=== PATIENT | female | born 1970 | race Caucasian/White ===

== ENCOUNTER 2018-03-11 10:25 | Day surgery (SDC) | payer BC ==
[~2018-03-11 10:25] MED LIST: Acetaminophen/HYDROcodone 325-5 MG Tab PO PRN; Bupivacaine 0.25%/EPINEPHrine 1:200,000 10 ML SDV INJECT ONE; Bupivacaine 25%/EPINEPHrine/PF 30 ML ONE; Clindamycin Phosphate in D5W 600 MG in Premix Bag 1 BAG IV ONE; Glycopyrrolate 0.2 MG/ML SDV ONE; Lactated Ringers 1,000 ML IV SCH; Lidocaine 2% 5 ML SDV ONE; Midazolam 1 MG/ML 2 ML SDV ONE; Neostigmine Methylsulfate 1 MG/ML 5 ML Syringe ONE; Ondansetron 4 MG/2 ML SDV ONE; Propofol 200 MG/20 ML SDV ONE; Rocuronium 10 MG/ML 10 ML Syringe ONE; fentaNYL 100 MCG/2 ML SDV ONE
[2018-03-11] MEDS ORDERED: Bupivacaine 25%/EPINEPHrine/PF 30 ML ONE (10:51)
--- NOTE | 2018-03-11 11:02 | PCM.PREANE ---
Preanesthetic Assessment - Anesthesia/Transfusion/Family Hx Anesthesia History: Prior Anesthesia Without Reaction Family History of Anesthesia Reaction: No Transfusion History: No Prior Transfusion(s) - Review of Systems General: No Symptoms Pulmonary: No Symptoms Cardiovascular: No Symptoms Gastrointestinal: No Symptoms Neurological: No Symptoms Other: Reports: None - Physical Assessment NPO Status Date: 03/10/18 Height: 1.47 m Weight: 53.524 kg ASA Class: 2 Mental Status: Alert & Oriented x3 Airway Class: Mallampati = 2 Dentition: Reports: Normal Dentition ROM/Head Extension: Full Lungs: Clear to Auscultation, Normal Respiratory Effort Cardiovascular: Regular Rate, Regular Rhythm - Allergies Allergies/Adverse Reactions: Allergies Allergy/AdvReac Type Severity Reaction Status Date / Time Penicillins Allergy Hives Verified 03/07/18 12:09 - Anesthesia Plan Pre-Op Medication Ordered: None - Acknowledgements Anesthesia Type Planned: General Anesthesia Pt an Appropriate Candidate for the Planned Anesthesia: Yes Alternatives and Risks of Anesthesia Discussed w Pt/Guardian: Yes Pt/Guardian Understands and Agrees with Anesthesia Plan: Yes PreAnesthesia Questionnaire HEENT History: Reports: Other (See Below) Other HEENT History: wears glasses Gastrointestinal History: Reports: Irritable Bowel Syndrome, Other (See Below) Other Gastrointestinal History: occasional heartburn Genitourinary History: Reports: Renal Calculus 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: Musculoskeletal History: Reports: Fracture Other Musculoskeletal History: hx fx hand Psychiatric History: Reports: Anxiety Endocrine/Metabolic History: Reports: Hypothyroidism, Osteopenia - Past Surgical History Head Surgeries/Procedures: Reports: None Female Surgical History: Reports: Section Dermatological Surgical History: Reports: Plastic Surgical Reconstruction/Repair , Other (See Below) - SUBSTANCE USE Smoking Status *Q: Never Smoker Recreational Drug Use History: No - HOME MEDS Home Medications: Home Meds Calcium Carb & Citrate/Vit D3 [Calcium + D3 ER Tablet] 2 tab PO DAILY 03/07/18 [ History] Calcium Carbonate [Tums] 1 tab.chew CHEW ASDIRECTED PRN 03/07/18 [History] Cholecalciferol (Vitamin D3) [Vitamin D3] 800 units PO DAILY 03/07/18 [History] Cyanocobalamin (Vitamin B12) [Vitamin B12] 1 tab PO DAILY 03/07/18 [History] Levothyroxine Sodium [Synthroid] 75 mcg PO DAILY 03/07/18 [History] - CURRENT (IN HOUSE) MEDS Current Meds: Current Medications Hydrocodone Bitart/Acetaminophen ([place] 325-5 Mg) 1 tab PO Q4H PRN PRN Reason: Pain Lactated Ringer's (Ringers, Lactated) 1,000 mls @ 125 mls/hr IV ASDIRECTED ALFREDO Discontinued Medications Bupivacaine HCl/Epinephrine Bitart ([place] 0.25%/Epinephrine 1:200,000) 10 ml INJECT ONETIME ONE Stop: 03/11/18 08:01 Fentanyl (Sublimaze) Confirm Administered Dose 300 mcg .ROUTE .STK-MED ONE Stop: 03/11/18 07:40 Glycopyrrolate (Robinul) Confirm Administered Dose 0.4 mg .ROUTE .STK-MED ONE Stop: 03/11/18 07:39 Clindamycin Phosphate 600 mg/ (Premix) 50 mls @ 150 mls/hr IV ONETIME ONE Stop: 03/11/18 08:19 Bupivacaine HCl/Epinephrine Bitart (Sensorc Mpf 0.25%-Epi 1:[id number]) Confirm Administered Dose 30 mls @ as directed .ROUTE .STK-MED ONE Stop: 03/11/18 07:34 Bupivacaine HCl/Epinephrine Bitart (Sensorc Mpf 0.25%-Epi 1:[id number]) Confirm Administered Dose 30 mls @ as directed .ROUTE .STK-MED ONE Stop: 03/11/18 10:52 Lidocaine (Xylocaine-Mpf 2%) Confirm Administered Dose 5 ml .ROUTE .STK-MED ONE Stop: 03/11/18 07:39 Midazolam HCl (Versed 1 Mg/Ml) Confirm Administered Dose 2 mg .ROUTE .STK-MED ONE Stop: 03/11/18 07:40 Neostigmine Methylsulfate (Neostigmine) Confirm Administered Dose 5 mg .ROUTE .STK-MED ONE Stop: 03/11/18 07:39 Ondansetron HCl (Zofran) Confirm Administered Dose 4 mg .ROUTE .STK-MED ONE Stop: 03/11/18 07:39 Propofol (Diprivan 20 Ml) Confirm Administered Dose 200 mg .ROUTE .STK-MED ONE Stop: 03/11/18 07:40 Rocuronium [place] (Zemuron) Confirm Administered Dose 100 mg .ROUTE .STK-MED ONE Stop: 03/11/18 07:39
[2018-03-11] MEDS ORDERED: Clindamycin Phosphate in D5W 50 ML ONE (11:12)
[2018-03-11] MEDS ORDERED: ePHEDrine 50 MG/ML SDV ONE (11:50)
[2018-03-11] MEDS ORDERED: Phenylephrine/Normal Saline 100 MCG/ML 10 ML Syringe ONE (11:52)
[2018-03-11] MEDS: fentaNYL 100 MCG/2 ML SDV IVPUSH PRN ×2 (14:35→14:40)
[2018-03-11] MEDS ORDERED: Dexamethasone 4 MG/ML 5 ML MDV IVPUSH ONE (14:55)
[2018-03-11] MEDS ORDERED: Promethazine 25 MG/ML SDV IM ONE (14:56)
[2018-03-11] MEDS ORDERED: Dexamethasone 4 MG/ML 5 ML MDV ONE (15:02)
--- NOTE | 2018-03-11 15:21 | PCM.POSTAN ---
POST ANESTHESIA ASSESSMENT - MENTAL STATUS Mental Status: Alert, Oriented - RESPIRATORY Respiratory Status: Respiratory Rate WNL, Airway Patent, O2 Saturation Stable - CARDIOVASCULAR CV Status: Pulse Rate WNL, Blood Pressure Stable - GASTROINTESTINAL GI Status: No Symptoms - POST OP HYDRATION Hydration Status: Adequate & Stable
--- NOTE | 2018-03-11 15:50 | PCM.OPNOTE ---
- General Post-Op/Procedure Note Date of Surgery/Procedure: 03/11/18 Operative Procedure(s): bilateral breast reduction Pre Op Diagnosis: bilateral macromastia Post-Op Diagnosis: Same Anesthesia Technique: General ET Tube, Local Primary Surgeon: Shaina eMjia Complications: None Condition: Good Free Text/Narrative:: Intake & Output 03/10/18 03/11/18 03/11/18 23:59 07:59 15:59 Intake Total 2450 Output Total 300 Balance 2150 The pedicle was narrowed as much as possible but concern for nipple loss dictated that we leave her a little larger than she would have liked. We could not feasibly take any more form the pedicle.
--- NOTE | 2018-03-11 16:31 | PCM48HPAN ---
Post Anesthesia Note - EVALUATION WITHIN 48HRS OF ANESTHETIC Vital Signs in Normal Range: Yes Patient Participated in Evaluation: Yes Respiratory Function Stable: Yes Airway Patent: Yes Cardiovascular Function Stable: Yes Hydration Status Stable: Yes Pain Control Satisfactory: Yes Nausea and Vomiting Control Satisfactory: Yes Mental Status Recovered: Yes Resp Rate: 20
--- NOTE | 2018-03-15 13:40 | OR ---
SURGEON: BRIGIDA BAIN MD DATE OF PROCEDURE: 03/11/2018 PREOPERATIVE DIAGNOSIS: Bilateral macromastia. POSTOPERATIVE DIAGNOSIS: Bilateral macromastia. PROCEDURE: Bilateral breast reduction. 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 ANESTHESIA: General ET tube with local. INDICATIONS: Ms. Calderon is a 47-year-old female seen today in evaluation for bilateral macromastia. She has significant neck, back and shoulder pain. We discussed risks and benefits of removal. Risks were including, but not limited to, bleeding, infection, damage to underlying or overlying structures, possible need for future interventions, possible scarring. PROCEDURE IN DETAIL: After informed consent was obtained and placed on the chart, the patient was brought to the operating theater and laid in the supine position. After adequate general anesthesia was obtained, the area was prepped and draped, a time-out was completed to confirm side and site. A 7-cm Rm pattern was designed and an inferior pedicle was marked at 7 cm of width. She would like to be as small as possible and dissection was initially undertaken at slightly larger than this to ensure stability of the pedicle. The inferior pedicle was de-epithelialized and then the superior skin flaps were dissected [address] to the chest wall, tapering medially and 1 [address] way to the chest wall laterally. Once adequately dissected here, attention was then paid to removal of the intervening breast tissue. Approximately 200 mL was taken from each breast. On evaluation, the left nipple- areolar complex was unfortunately with slow capillary refill and thus additional amounts were not elected upon given the safety of the nipple-areolar complex. She would like to be as small as possible, but concerns for nipple loss dictate that we unfortunately do not remove any more from the pedicle. This was discussed with her preoperatively and she does understand. Once the breast tissue was removed and sent for pathology, the area was copiously irrigated and meticulous hemostasis was obtained. The skin flaps were then redraped over the inferior pedicle and were stapled in place. Lateral advancement was needed given the slightly larger pedicle than desired. Once redraped, the skin was stapled in place. The patient was sat up in the new position, the nipple-areolar complexes was marked. The patient was then laid back in the supine position and the wounds were closed using deep 3-0 STRATAFIX Monocryl suture for the dermis and a running 4-0 STRATAFIX suture for the skin. The patient tolerated this well. All counts and needles were correct at the end of the case. The wounds were dressed with Steri-Strips, fluffs, Kerlix gauze dressing, and a compression bra. The patient tolerated this well. All counts and needles were correct at the end of the case. FOLLOWUP INSTRUCTIONS: The patient will see us tomorrow in clinic. Sooner if any problems, questions, or concerns. AYDEN RONQUILLO /[id number]
== END 2018-03-11 16:25 | disposition home or self-care (01) ==
LOC: MW.SDS 10:25
PROVIDERS: ATTEND Plastic Surgery
DX: N62 Hypertrophy of breast (principal); N60.12 Diffuse cystic mastopathy of left breast; N60.11 Diffuse cystic mastopathy of right breast; E03.9 Hypothyroidism, unspecified; Z88.0 Allergy status to penicillin; Z79.899 Other long term (current) drug therapy
CPT/HCPCS: 19318; 81025; 88304; A9270; J1100; J2250; J2405; J2550; J3010; J7120; J2704

== ENCOUNTER 2019-03-23 09:25 | Day surgery (SDC) | payer BC ==
[~2019-03-23 09:25] MED LIST changes: -Acetaminophen/HYDROcodone 325-5 MG Tab PO PRN; -Bupivacaine 0.25%/EPINEPHrine 1:200,000 10 ML SDV INJECT ONE; -Bupivacaine 25%/EPINEPHrine/PF 30 ML ONE; -Clindamycin Phosphate in D5W 600 MG in Premix Bag 1 BAG IV ONE; -Glycopyrrolate 0.2 MG/ML SDV ONE; -Midazolam 1 MG/ML 2 ML SDV ONE; -Neostigmine Methylsulfate 1 MG/ML 5 ML Syringe ONE; -Ondansetron 4 MG/2 ML SDV ONE; -Rocuronium 10 MG/ML 10 ML Syringe ONE; +Sodium Chloride 0.9% 10 ML SDV IV PRN; +Sodium Chloride 0.9% 10 ML Syringe FLUSH PRN; +Sodium Chloride 0.9% 2.5 ML Syringe FLUSH PRN
--- NOTE | 2019-03-23 10:21 | PCM.PREANE ---
Preanesthetic Assessment - Anesthesia/Transfusion/Family Hx Anesthesia History: Prior Anesthesia Without Reaction Transfusion History: No Prior Transfusion(s) - Review of Systems General: No Symptoms Pulmonary: No Symptoms Cardiovascular: No Symptoms Gastrointestinal: No Symptoms Neurological: No Symptoms Other: Reports: None - Physical Assessment NPO Status Date: 03/23/19 NPO Status Time: 07:45 Height: 1.47 m Weight: 51.71 kg ASA Class: 2 Mental Status: Alert & Oriented x3 Airway Class: Mallampati = 2 Dentition: Reports: Normal Dentition Thyro-Mental Finger Breadths: 3 Mouth Opening Finger Breadths: 3 ROM/Head Extension: Full Lungs: Clear to Auscultation, Normal Respiratory Effort Cardiovascular: Regular Rate, Regular Rhythm - Lab Values: Laboratory Last Values Urine HCG, Qual NEGATIVE (NEGATIVE) 03/23/19 09:35 - Allergies Allergies/Adverse Reactions: Allergies Allergy/AdvReac Type Severity Reaction Status Date / Time Penicillins Allergy Hives Verified 03/20/19 12:14 - Acknowledgements Anesthesia Type Planned: MAC Pt an Appropriate Candidate for the Planned Anesthesia: Yes Alternatives and Risks of Anesthesia Discussed w Pt/Guardian: Yes Pt/Guardian Understands and Agrees with Anesthesia Plan: Yes PreAnesthesia Questionnaire HEENT History: Reports: Other (See Below) Other HEENT History: wears glasses Cardiovascular History: Reports: None Respiratory History: Reports: None Gastrointestinal History: Reports: Irritable Bowel Syndrome, Other (See Below) Other Gastrointestinal History: occasional heartburn Genitourinary History: Reports: Renal Calculus 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: Musculoskeletal History: Reports: Fracture, Other (See Below) (tendinitis which radiates into the left hip and then the left leg, preop pain score "3-4/10") Other Musculoskeletal History: hx fx hand Neurological History: Reports: None Psychiatric History: Reports: Anxiety Endocrine/Metabolic History: Reports: Hypothyroidism, Osteopenia Hematologic History: Reports: None Immunologic History: Reports: None Oncologic (Cancer) History: Reports: None Dermatologic History: Reports: None - Past Surgical History Head Surgeries/Procedures: Reports: None HEENT Surgical History: Reports: None Cardiovascular Surgical History: Reports: None Respiratory Surgical History: Reports: None GI Surgical History: Reports: None Female Surgical History: Reports: Breast Reduction, Section, Endometrial Ablation Endocrine Surgical History: Reports: None Neurological Surgical History: Reports: None Musculoskeletal Surgical History: Reports: None Oncologic Surgical History: Reports: None Dermatological Surgical History: Reports: Plastic Surgical Reconstruction/Repair , Other (See Below) - SUBSTANCE USE Smoking Status *Q: Never Smoker Recreational Drug Use History: No - HOME MEDS Home Medications: Home Meds Levothyroxine Sodium [Synthroid] 75 mcg PO DAILY 03/07/18 [History] Calcium Carbonate [Calcium] 250 mg PO DAILY 03/20/19 [History] Cholecalciferol (Vitamin D3) [Vitamin D3] 1,000 units PO DAILY 03/20/19 [History ] Cyanocobalamin (Vitamin B-12) [Vitamin B-12] 500 mcg PO DAILY 03/20/19 [History] - CURRENT (IN HOUSE) MEDS Current Meds: Current Medications Lactated Ringer's (Ringers, Lactated) 1,000 mls @ 125 mls/hr IV ASDIRECTED ALFREDO Sodium Chloride (Saline Flush) 10 ml FLUSH ASDIRECTED PRN PRN Reason: Keep Vein Open Sodium Chloride (Saline Flush) 2.5 ml FLUSH ASDIRECTED PRN PRN Reason: Keep Vein Open Sodium Chloride (Saline Flush) 10 ml FLUSH ASDIRECTED PRN PRN Reason: Keep Vein Open Sodium Chloride (Saline Flush) 2.5 ml FLUSH ASDIRECTED PRN PRN Reason: Keep Vein Open Sodium Chloride (Normal Saline) 10 ml IV ASDIRECTED PRN PRN Reason: IV Use Discontinued Medications Fentanyl (Sublimaze) Confirm Administered Dose 100 mcg .ROUTE .STK-MED ONE Stop: 03/23/19 08:18 Lidocaine (Xylocaine-Mpf 2%) Confirm Administered Dose 5 ml .ROUTE .STK-MED ONE Stop: 03/23/19 08:18 Propofol (Diprivan 20 Ml) Confirm Administered Dose 400 mg .ROUTE .STK-MED ONE Stop: 03/23/19 08:18
[2019-03-23] MEDS ORDERED: Glycopyrrolate 0.2 MG/ML SDV ONE (10:41)
--- NOTE | 2019-03-23 10:55 | PCM.OPNOTE ---
- General Post-Op/Procedure Note Date of Surgery/Procedure: 03/23/19 Operative Procedure(s): screening colonoscopy Findings: diverticulosis Pre Op Diagnosis: screening colonoscopy Post-Op Diagnosis: diverticulosis Primary Surgeon: Neda Kwon Pathology: none EBL in mLs: 0 Condition: Good
--- NOTE | 2019-03-23 11:12 | PCM.POSTAN ---
POST ANESTHESIA ASSESSMENT - MENTAL STATUS Mental Status: Alert, Oriented - RESPIRATORY Respiratory Status: Respiratory Rate WNL, Airway Patent, O2 Saturation Stable - CARDIOVASCULAR CV Status: Pulse Rate WNL, Blood Pressure Stable - GASTROINTESTINAL GI Status: No Symptoms - POST OP HYDRATION Hydration Status: Adequate & Stable - OBSERVATIONS Free Text/Narrative:: The patient tolerated the procedure well. There were no apparent anesthetic complications at this time.
--- NOTE | 2019-03-23 11:39 | PCM48HPAN ---
Post Anesthesia Note - EVALUATION WITHIN 48HRS OF ANESTHETIC Vital Signs in Normal Range: Yes Patient Participated in Evaluation: Yes Respiratory Function Stable: Yes Airway Patent: Yes Cardiovascular Function Stable: Yes Hydration Status Stable: Yes Pain Control Satisfactory: Yes Nausea and Vomiting Control Satisfactory: Yes Mental Status Recovered: Yes Resp Rate: 17 - COMMENTS/OBSERVATIONS Free Text/Narrative:: The patient has no complaints at this time. Discharge home per criteria.
--- NOTE | 2019-03-24 21:54 | OR ---
SURGEON: LI CAMPUZANO MD DATE OF PROCEDURE: 03/23/2019 PREOPERATIVE DIAGNOSIS: Screening colonoscopy. POSTOPERATIVE DIAGNOSIS: Diverticulosis. PROCEDURE PERFORMED: Screening colonoscopy. ANESTHESIA: MAC. INSTRUMENT USED: Olympus colonoscope. EXTENT OF EXAM: To the cecum. PREPARATION: Good. LIMITATIONS: None. INDICATION FOR EXAMINATION: The patient is a 48-year-old female who presents for a screening colonoscopy. Her last one 10 years ago was normal. I explained the procedure, expected perioperative course, and risks including bleeding, infection, damage to surrounding structures including perforation. The patient verbalized understanding and wishes to proceed. PROCEDURE IN DETAIL: The patient was brought to the endoscopy suite and placed in the left lateral decubitus position. A time-out was completed verifying the patient's name, age, date of , allergies, and procedure to be performed. Monitored anesthesia care was induced and continuous oxygen was provided via nasal cannula throughout the procedure. After adequate sedation was achieved, a digital rectal exam was performed. This exam was within normal limits. A well lubricated colonoscope was inserted into the rectum and advanced under direct visualization to the level of the cecum. The cecum was identified by both visual and anatomic landmarks. A photograph was taken of the cecal cap as well as with the scope retroflexed within the cecum. Scope was then straightened out and fully withdrawn while examining the color, texture, anatomy, and integrity of the mucosa from the cecum to the anal canal. The patient was found to have scattered diverticulosis throughout the colon. The scope was then brought into the rectum and retroflexed to allow visualization of the anal canal opening. This appeared normal and a photograph was taken. The scope was then straightened out and fully withdrawn. The cecum to anus time was 6 minutes. The patient tolerated procedure well and was taken to PACU in stable condition. ENDOSCOPIC DIAGNOSIS: Diverticulosis. RECOMMENDATIONS: I visited with the patient in the postoperative care area regarding her diagnosis. We discussed diverticulosis and the signs and symptoms of diverticulitis. She can follow up in 10 years for repeat colonoscopy. JOCELYN RONQUILLO /[id number]
== END 2019-03-23 11:50 | disposition home or self-care (01) ==
LOC: MW.SDS 09:25
PROVIDERS: ATTEND Surgery
DX: Z12.11 Encounter for screening for malignant neoplasm of colon (principal); K57.30 Diverticulosis of large intestine without perforation or abscess without bleeding; Z80.0 Family history of malignant neoplasm of digestive organs; E03.9 Hypothyroidism, unspecified; M85.80 Other specified disorders of bone density and structure, unspecified site; E66.3 Overweight; Z68.24 Body mass index [BMI] 24.0-24.9, adult; Z88.0 Allergy status to penicillin
CPT/HCPCS: 45378; 81025; J2001; J2704; J3010; J3490; J7120